=== PATIENT | male | born 1990 | race Caucasian/White ===

== ENCOUNTER 2020-12-11 10:48 | Emergency (ER) | payer SELFPAY | END 2020-12-11 13:25 | disposition home or self-care (01) | LOC: ER1 10:48 | PROVIDERS: Emergency Medicine | DX: S09.90XA Unspecified injury of head, initial encounter (principal); W22.8XXA Striking against or struck by other objects, initial encounter; F17.200 Nicotine dependence, unspecified, uncomplicated; Y92.89 Other specified places as the place of occurrence of the external cause; Y99.0 Civilian activity done for income or pay | CPT/HCPCS: 70450; 80307; 99284 ==